=== PATIENT | male | born 1990 | race Two or more races ===

== ENCOUNTER → 2016-06-14 | Outpatient (CLI) | payer OTHER | LOC: BRMIMAGING 09:34 | PROVIDERS: ATTEND Internal Medicine | DX: M79.642 Pain in left hand (principal) | CPT/HCPCS: 73130-PO ==

== ENCOUNTER → 2016-06-24 | Outpatient (CLI) | payer OTHER | LOC: BRMIMAGING 16:47 | PROVIDERS: ATTEND Internal Medicine | DX: S60.222A Contusion of left hand, initial encounter (principal); Y99.0 Civilian activity done for income or pay | CPT/HCPCS: 73130-PO ==